=== PATIENT | female | born 1965 | race Caucasian/White ===

== ENCOUNTER 2017-04-01 09:42 | Day surgery (SDC) | payer OTHER ==
[~2017-04-01] VITALS: Ht 152.4 cm; Wt 64.2 kg
[2017-04-01] MEDS ORDERED: [UNRECOGNIZED DRUG - REMARK] (10:42)
--- NOTE | 2017-04-01 12:36 | OPPN ---
Date/Time of Note Date/Time of Note DATE: 04/01/17 TIME: 12:35 Operative Report Preoperative Diagnosis Gastroesophageal reflux disease Dysphagia Screening Postoperative Diagnosis Gastroesophageal reflux disease Hiatal hernia Gastritis and biopsy was positive for H. pylori infection Internal hemorrhoids No colon neoplasm is identified Operation/Procedure Performed Esophagogastroduodenoscopy and biopsy Colonoscopy Surgeon see signature line golf player assistant None Anesthesia: moderate sedation Estimated blood loss: none Transfusion Required none Specimen Gastric mucosal biopsy Grafts/Implants none Complications none JAYLA NICHOLS MD Apr 01, 2017 12:36
[2017-04-01] MEDS ORDERED: MIDAZOLAM 1 MG/ML 2 ML INJ ONE ×4 (12:53)
[2017-04-01] MEDS ORDERED: FENTAnyl 50 MCG/ML VIAL ONE (12:53)
[2017-04-01 13:08] VITALS: BP 112/49; RESP 14
--- NOTE | 2017-04-01 18:23 | GILP ---
DATE OF PROCEDURE: 04/01/2017 NAME OF PROCEDURE: 1. Esophagogastroduodenoscopy and biopsy. 2. Colonoscopy. SURGEON: Jayla Dillard MD PREOPERATIVE DIAGNOSES: 1. Chronic heartburn. 2. Dysphagia. 3. Screening colonoscopy. POSTOPERATIVE DIAGNOSES: 1. Hiatal hernia. 2. Gastroesophageal reflux disease. 3. Gastritis and biopsy was positive for Helicobacter pylori infection. 4. Colonoscopy all the way to the cecum. 5. Internal hemorrhoids. 6. No colon neoplasm was identified. INDICATION FOR THE PROCEDURE: Ms. Tiki Ptits is a 52-year-old female patient who had chronic heartburn and dysphagia. The patient also needed screening colonoscopy. The procedures and possible complications are well explained to the patient. The patient understood and consented to the procedures. DESCRIPTION OF PROCEDURE: Under the influence of fentanyl and Versed, the gastroscope was carefully introduced into the esophagus and under direct vision, it was advanced to the stomach and through t he pylorus into the duodenal bulb and descending duodenum. FINDINGS: ESOPHAGUS: The patient had a hiatal hernia and gastroesophageal reflux disease. STOMACH: She had gastritis with erosions. Gastric mucosal biopsies are positive for Helicobacter p ylori infection. DUODENUM: Normal. The colonoscope was carefully introduced in the rectum and under direct vision, it was advanced all the way to the cecum. FINDINGS: The patient had internal hemorrhoids. No colon neoplasm was identified. She tolerated the procedures very well and there was no complication from the procedures. At the en d of the procedures, she was awake with stable vital signs and she was discharged home to the care o f her family. IMPRESSION: Please see postoperative diagnoses. PLAN: 1. Omeprazole 40 mg p.o. q.a.m. 2. Zantac 300 mg p.o. b.i.d. for 14 days. 3. Doxycycline 100 mg p.o. b.i.d. for 14 days. 4. Flagyl 500 mg p.o. b.i.d. for 14 days. 5. Pepto-Bismol 2 tablets p.o. q.i.d. for 14 days. 6. Next screening colonoscopy in 10 years. Dictated By: JAYLA SPRING/JESI Conf#: [id number] DID#: [id number]
== END 2017-04-01 12:48 | disposition home or self-care (01) ==
LOC: SDS 09:42 → GIL 12:48
PROVIDERS: ATTEND Internal Medicine Gastroenterology
DX: Z12.11 Encounter for screening for malignant neoplasm of colon (principal); K21.9 Gastro-esophageal reflux disease without esophagitis; K29.70 Gastritis, unspecified, without bleeding; B96.81 Helicobacter pylori [H. pylori] as the cause of diseases classified elsewhere; R13.10 Dysphagia, unspecified; K44.9 Diaphragmatic hernia without obstruction or gangrene; K64.8 Other hemorrhoids; E03.9 Hypothyroidism, unspecified
CPT/HCPCS: 43239; 45378; 87081; J2250; J3010; Z7610